=== PATIENT | male | born 1950 | race African-American/Black ===

== ENCOUNTER 2018-04-27 11:07 | Day surgery (SDC) | payer OTHER ==
[2018-04-26 10:12] LABS: Absolute Lymphocytes (CBC) 0.8 K/uL (0.7-4.9); Absolute Monocytes 0.3 K/uL (0.1-1.3); Absolute Neutrophil 2.3 K/uL (1.8-8.0); Basophils % 0.6 % (0-1.3); Eosinophils % 1.4 % (0-4.4); Hematocrit 40.6 % (39.6-49.0); Lymphocytes % 22.3 % (15.3-44.8); MCH 33.5 pg (27.0-35.0); MCV 97.9 fL (80-100); MPV 9.3 fL (7.6-11.3); Monocytes % 8.4 % (3.3-12.3); RBC Red Blood Cell Count 4.15 M/uL (4.33-5.43)
[2018-04-26 10:16] LABS: Urine Appearance CLEAR; Urine Bilirubin NEGATIVE (NEG); Urine Blood NEGATIVE (NEG); Urine Color YELLOW; Urine Glucose NEGATIVE (NEG); Urine Protein NEGATIVE (NEG); Urine Specific Gravity <=1.005 (1.005-1.030); Urine Urobilinogen 0.2 mg/dL (0.2-1.0); Urine pH 5.5 (5.0-7.0)
[2018-04-26 10:28] LABS: Protime INR 1.74
[2018-04-26 10:29] LABS: Potassium 4.2 mmol/L (3.5-5.1); Urine Microscopic Reflex NO UMIC
--- NOTE | 2018-04-26 10:35 | RAD REPORT ---
EXAM DESCRIPTION: RAD - Chest Pa And Lat (2 Views) - 04/26/2018 10:26 am CLINICAL HISTORY: preop Chest pain. COMPARISON: No comparisons FINDINGS: The lungs are clear. The heart is normal in size. No displaced fractures. Multi lead pacer /defibrillator device is present. IMPRESSION: No acute or concerning finding suspected.
--- NOTE | 2018-04-26 11:34 | EKG ---
Test Date: 2018-04-26 Test Time: 09:36:43 Property Maintenance Technician: JEN MEASUREMENT RESULTS: Intervals: Rate: 70 GA: QRSD: 144 QT: 388 QTc: 419 Yale: P: GA: QRS: 245 T: 58 INTERPRETIVE STATEMENTS: Electronic ventricular pacemaker No previous ECG available for comparison Electronically Signed On 04-26-18 11:34:10 [employer] by Ramesh Ortega
--- OUTSIDE RECORDS SUMMARY | 2018-04-27 11:19 | XMS REPORT ---
:1950 [facility] Address [address] [place] [address] [address] [place] [address] Care Team Providers Name Role Phone REYNALDO OLMEDO Primary Care Provider Unavailable REYNALDO OLMEDO Unavailable Unavailable Problems This patient has no known problems. Allergies, Adverse Reactions, Alerts This patient has no known allergies or adverse reactions. Medications This patient has no known medications. Encounters Start End Encounter Admission Attending Care Care Encounter Date/Time Date/Time Type Type Clinicians Facility Department ID 2017-05-26 2017-05-26 [facility] [id number] 20:59:00 20:59:00 REYNALDO Results Test Description Test Time Test Comments Text Results Atomic Results Result Comments Basic Metabolic Panel 2017-05-26 23:32:00 Test Item Value Reference Range Comments Sodium (test code=NA) 137 mmol/L 135-145 Potassium (test code=K) 4.6 mmol/L 3.5-5.1 Chloride (test code=CL) 98 mmol/L 98-105 Carbon Dioxide (test 28 mmol/L 22-29 code=CO2) Glucose (test code=GLU) 111 mg/dL 70-115 Blood Urea Nitrogen (test 17 mg/dL 8-23 code=BUN) Creatinine (test code=CREAT) 1.0 mg/dL 0.7-1.2 Calcium (test code=CA) 9.6 mg/dL 8.3-10.5 BUN/Creatinine Ratio (test 17.0 code=BCRATIO) Anion Gap (test code=AGAP) 11 mmol/L 7-16 Estimated GFR (test >60 mL/min/1.73m2 eGFR (estimated Glomerular code=GFR) Filtration Rate) is an estimated value,calculated from the patient's serum creatinine using the MDRD equation.It is NOT the patient's actual GFR. The eGFR provides a more clinicallyuseful measure of kidney disease than serum creatinine alone.This calculation takes sex and race into account, if the informationis provided. If the race is not provided, and the patient isAfrican-Algerian, multiply by 1.212. If sex is not provided, and thepatient is female, multiply by 0.742. Results for patients <18 years ofage have not been validated by the MDRD study and should be interpretedwith caution.eGFR Result Interpretation:eGFR > or=60 is in the Normal RangeeGFR < 60 may mean kidney diseaseeGFR < 15 may mean kidney failureRanges recommended by the National Kidney Foundation,http://nkdep.nih.go v [id number] 23:12:00 Test Item Value Reference Range Comments NT ProBnp (test code=PBNP) 548 pg/mL 0-124 Special Procedure Send [id number] 14:20:00 Test Item Value Reference Range Comments Performing Site (test code=SITE) see [facility] report Test Ordered (test code=TESTORD) B-Type Natriuretic Peptide
[2018-04-27] MEDS ORDERED: Ringers Lactate 1,000 ML IV ONE (11:36)
[2018-04-27] MEDS ORDERED: GENTAMICIN 100 MG/100 ML BAG 100 MG/100 ML BAG IV ONE (11:37)
[2018-04-27] MEDS ORDERED: PROPOFOL 200 MG/20 ML VIAL IV ONE (13:26)
[2018-04-27] MEDS ORDERED: FENTANYL CITR 100 MCG/2 ML ONE (13:27)
[2018-04-27] MEDS ORDERED: LIDOCAINE 1% MPF 5 ML VIAL ONE (13:27)
[2018-04-27] MEDS ORDERED: MIDAZOLAM HCL 2 MG/2 ML INJ ONE (13:27)
[2018-04-27] MEDS ORDERED: ONDANSETRON 4 MG/2 ML VIAL ONE (13:28)
[2018-04-27] MEDS ORDERED: Phenylephrine HCl 10 MG/ML 1 ML VIAL ONE (13:56)
[2018-04-27] MEDS ORDERED: NS 0.9% VIAL 10 ML ONE (13:56)
== END 2018-04-27 16:12 | disposition home or self-care (01) ==
LOC: OR 11:07
PROVIDERS: ATTEND Urology
PROC: 0TJB8ZZ Inspection of Bladder, Via Natural or Artificial Opening Endoscopic (ICD-10-PCS; 2018-04-27)
PROC: 0VT08ZZ Resection of Prostate, Via Natural or Artificial Opening Endoscopic (ICD-10-PCS; principal; 2018-04-27 13:15)
DX: C61 Malignant neoplasm of prostate (principal); R39.12 Poor urinary stream; R35.0 Frequency of micturition; N39.0 Urinary tract infection, site not specified; Z95.0 Presence of cardiac pacemaker; Z87.891 Personal history of nicotine dependence; Z86.718 Personal history of other venous thrombosis and embolism; Z79.01 Long term (current) use of anticoagulants; I11.0 Hypertensive heart disease with heart failure; I50.22 Chronic systolic (congestive) heart failure
CPT/HCPCS: 36415; 52601; 71046; 80048; 81003; 85025; 85610; 85730; 87086; 87088; 88305; 93005; G0103; J1580; J2250; J2370; J2405; J2704; J3010

== ENCOUNTER 2019-06-01 07:55 | Emergency (ER) | payer OTHER ==
--- OUTSIDE RECORDS SUMMARY | 2019-06-01 07:57 | XMS REPORT ---
:1950 Author [facility] Address [address] [place] [address] [address] [place] [address] Care Team Providers Name Role Phone REYNALDO OLEMDO Primary Care Provider Unavailable REYNALDO OLMEDO Unavailable Unavailable Problems This patient has no known problems. Allergies, Adverse Reactions, Alerts This patient has no known allergies or adverse reactions. Medications This patient has no known medications. Encounters Start End Encounter Admission Attending Care Care Encounter Date/Time Date/Time Type Type Clinicians Facility Department ID 2017-05-26 2017-05-26 Outpatient C [facility] [id number] 20:59:00 20:59:00 REYNALDO Results Test Description Test Time Test Comments Text Results Atomic Results Result Comments XR Chest 1 View Frontal 2018-06-25 08:52:36 Patient: GIGI BANKS Date/Time06/25/2018 08:48 CSTReason for Exampre icd change out;Other (please specify)ReportEXAM: XR CHEST 1 VIEW FRONTALHISTORY: Presurgery. ICD revisionLocation code R 16COMPARISON: Chest radiograph from 09/01/2013FINDINGS: The AICD/pacemaker device again seen in the left lateral chest. A single lead terminates in the right ventricle. Another the tip superimposes the lower lateral chest. Mild cardiomegaly redemonstrated.Lungs are otherwise clear. No pleural effusion or pneumothorax. Osseous structures unremarkable.IMPRESSION:1. Left-sided AICD/pacemaker. A single lead terminates in the right ventricle. Another the tip superimposes the lower lateral chest.2. Mild cardiomegaly redemonstrated. Final Dictated by: MD Subramanian Eniola FDictated DT/TM: 06/25/2018 8:49 amSigned by: MD Subramanian Eniola FSigned (Electronic Signature): 06/25/2018 8:52 am Basic Metabolic Panel 2017-05-26 23:32:00 Test Item [...] race is not provided, and the patient isAfrican-Malian, multiply by 1.212. If sex is not provided, and thepatient is female, multiply by 0.742. Results for patients <18 years ofage have not been validated by the MDRD study and should be interpretedwith caution.eGFR Result Interpretation:eGFR > or=60 is in the Normal RangeeGFR < 60 may mean kidney diseaseeGFR < 15 may mean kidney failureRanges recommended by the National Kidney Foundation,http://nkdep.nih.go v [id number] 23:12:00 Test Item Value Reference Range Comments NT ProBnp (test code=PBNP) 548 pg/mL 0-124 Special Procedure Send [id number] 14:20:00 Test Item Value Reference Range Comments Performing Site (test code=SITE) see [facility] report Test Ordered (test code=TESTORD) B-Type Natriuretic Peptide
--- NOTE | 2019-06-01 09:06 | EDPHYS ---
Physician Documentation [facility] Name: Jt Maurice Age: 68 yrs Sex: Male : 1950 Arrival Date: 06/01/2019 Time: 07:57 Bed 20 Private MD: ED Physician Yimi Villela HPI: 06/01 08:26 This 68 yrs old Black Male presents to ER via Ambulatory with complaints of Urinary niru Retention. 08:26 The patient presents with urinary symptoms, dribbling of urine, dysuria, urinary niru frequency, hesitancy to initiate urine stream, retention. Onset: The symptoms/episode began/occurred last night. Modifying factors: The symptoms are alleviated by nothing, the symptoms are aggravated by nothing. Associated signs and symptoms: Pertinent positives: dysuria. Severity of symptoms: At their worst the symptoms were mild, in the emergency department the symptoms have improved, moderately. The patient has experienced similar episodes in the past, a few times. Historical: - Allergies: 08:11 Iodine; dm5 08:11 PENICILLINS; dm5 - PMHx: 08:11 Atrial Fib; Hypertension; Prostate Cancer; dm5 - PSHx: 08:11 pacemaker; prostate cancer removal; dm5 - Immunization history:: Adult Immunizations up to date. - Social history:: Smoking status: Patient/guardian denies using tobacco. - Ebola Screening: : No symptoms or risks identified at this time. - Family history:: not pertinent. ROS: 08:26 Constitutional: Negative for fever, chills, and weight loss, Eyes: Negative for injury, niru pain, redness, and discharge, ENT: Negative for injury, pain, and discharge, Neck: Negative for injury, pain, and swelling, Cardiovascular: Negative for chest pain, palpitations, and edema, Respiratory: Negative for shortness of breath, cough, wheezing, and pleuritic chest pain, Abdomen/GI: Negative for abdominal pain, nausea, vomiting, diarrhea, and constipation, Back: Negative for injury and pain, MS/Extremity: Negative for injury and deformity, Skin: Negative for injury, rash, and discoloration, Neuro: Negative for headache, weakness, numbness, tingling, and seizure, Psych: Negative for depression, anxiety, suicide ideation, homicidal ideation, and hallucinations, Allergy/Immunology: Negative for hives, rash, and allergies, Endocrine: Negative for neck swelling, polydipsia, polyuria, polyphagia, and marked weight changes, Hematologic/Lymphatic: Negative for swollen nodes, abnormal bleeding, and unusual bruising. 08:26 : Positive for urinary symptoms, urinary frequency, difficulty urinating. Exam: 08:26 Constitutional: This is a well developed, well nourished patient who is awake, alert, niru and in no acute distress. Head/Face: Normocephalic, atraumatic. Eyes: Pupils equal round and reactive to light, extra-ocular motions intact. Lids and lashes normal. Conjunctiva and sclera are non-icteric and not injected. Cornea within normal limits. Periorbital areas with no swelling, redness, or edema. ENT: Nares patent. No nasal discharge, no septal abnormalities noted. Tympanic membranes are normal and external auditory canals are clear. Oropharynx with no redness, swelling, or masses, exudates, or evidence of obstruction, uvula midline. Mucous membranes moist. Neck: Trachea midline, no thyromegaly or masses palpated, and no cervical lymphadenopathy. Supple, full range of motion without nuchal rigidity, or vertebral point tenderness. No Meningismus. Chest/axilla: Normal chest wall appearance and motion. Nontender with no deformity. No lesions are appreciated. Cardiovascular: Regular rate and rhythm with a normal S1 and S2. No gallops, murmurs, or rubs. Normal PMI, no JVD. No pulse deficits. Respiratory: Lungs have equal breath sounds bilaterally, clear to auscultation and percussion. No rales, rhonchi or wheezes noted. No increased work of breathing, no retractions or nasal flaring. Abdomen/GI: Soft, non-tender, with normal bowel sounds. No distension or tympany. No guarding or rebound. No evidence of tenderness throughout. Back: No spinal tenderness. No costovertebral tenderness. Full range of motion. Male : Normal genitalia with no discharge or lesions. Skin: Warm, dry with normal turgor. Normal color with no rashes, no lesions, and no evidence of cellulitis. MS/ Extremity: Pulses equal, no cyanosis. Neurovascular intact. Full, normal range of motion. Neuro: Awake and alert, GCS 15, oriented to person, place, time, and situation. Cranial nerves II-XII grossly intact. Motor strength 5/5 in all extremities. Sensory grossly intact. Cerebellar exam normal. Normal gait. Psych: Awake, alert, with orientation to person, place and time. Behavior, mood, and affect are within normal limits. Vital Signs: 08:11 BP 154 / 79; Pulse 70; Resp 18; Temp 97.5(O); Pulse Ox 99% on R/A; Weight 83.91 kg (R); dm5 Height 6 ft. 0 in. (182.88 cm); Pain 0/10; 08:11 Body Mass Index 25.09 (83.91 kg, 182.88 cm) dm5 MDM: 08:01 Patient medically screened. [facility] 08:30 Data reviewed: vital signs, nurses notes, lab test result(s), urinalysis. [facility] 06/01 08:04 Order name: Urine Culture [facility] 06/01 08:50 Order name: Urine Dipstick--Ancillary (enter results) 06/01 08:03 Order name: Bladder Scanner; Complete Time: 08:16 [facility] 06/01 08:04 Order name: Urine Dipstick-Ancillary (obtain specimen); Complete Time: 08:47 [facility] Administered Medications: 09:27 Drug: Flomax 0.4 mg Route: PO; 09:27 Follow up: Response: Medication administered at discharge. sv 09:27 Drug: Cipro 500 mg Route: PO; sv 09:27 Follow up: Response: Medication administered at discharge. sv Disposition: 06/01/19 09:05 Discharged to Home. Impression: Retention of urine, Urinary tract infection, site not specified. - Condition is Stable. - Discharge Instructions: Urinary Tract Infection, Adult, Urinary Tract Infection, Adult, [id number], Acute Urinary Retention, Male, [id number]. - Prescriptions for Cipro 250 mg Oral Tablet - take 1 tablet by ORAL route every 12 hours; 20 tablet. Flomax 0.4 mg Oral Capsule, Sust. Release 24 hr - take 1 capsule by ORAL route once daily 1/2 hour following the same meal each day; 30 capsule. Bactrim DS 800- 160 mg Oral Tablet - take 1 tablet by ORAL route every 12 hours for 3 days; 6 tablet. - Medication Reconciliation Form, Thank You Letter, Antibiotic Education, Prescription Opioid Use form. - Follow up: Private Physician; When: 1 week; Reason: Recheck today's complaints, Continuance of care, Re-evaluation by your physician. - Problem is new. - Symptoms have improved. Signatures: Dispatcher [employer] Sharmaine Thompson, RN RN dm5 Meghann Perez RN RN sv Anderson, Corey, MD MD cha Corrections: (The following items were deleted from the chart) 09:28 09:05 06/01/2019 09:05 Discharged to Home. Impression: Retention of urine; Urinary sv tract infection, site not specified. Condition is Stable. Discharge Instructions: Acute Urinary Retention, Male, [id number]. Prescriptions for Cipro 250 mg Oral Tablet - take 1 tablet by ORAL route every 12 hours; 20 tablet, Flomax 0.4 mg Oral Capsule, Sust. Release 24 hr - take 1 capsule by ORAL route once daily 1/2 hour following the same meal each day; 30 capsule. and Forms are Medication Reconciliation Form, Thank You Letter, Antibiotic Education, Prescription Opioid Use. Follow up: Private Physician; When: 1 week; Reason: Recheck today's complaints, Continuance of care, Re-evaluation by your physician. Problem is new. Symptoms have improved. niru
--- NOTE | 2019-06-01 09:06 | ER ---
Nurse's Notes [facility] Name: Jt Maurice Age: 68 yrs Sex: Male : 1950 Arrival Date: 06/01/2019 Time: 07:57 Bed 20 Private MD: Diagnosis: Retention of urine;Urinary tract infection, site not specified Presentation: 06/01 08:08 Presenting complaint: Patient states: trouble urinating since last night. surgery to dm5 remove scar tissue following previous prostate cancer surgery. pt reports dribbling when trying to urinate. Transition of care: patient was not received from another setting of care. Onset of symptoms was June 01, 2019. 08:08 Acuity: GAGANDEEP 3 dm5 08:08 Method Of Arrival: Ambulatory [facility] 08:24 Risk Assessment: Do you want to hurt yourself or someone else? Patient reports no sv desire to harm self or others. Initial Sepsis Screen: Does the patient meet any 2 criteria? No. Patient's initial sepsis screen is negative. Does the patient have a suspected source of infection? No. Patient's initial sepsis screen is negative. Care prior to arrival: None. Historical: - Allergies: 08:11 Iodine; dm5 08:11 PENICILLINS; dm5 - PMHx: 08:11 Atrial Fib; Hypertension; Prostate Cancer; dm5 - PSHx: 08:11 pacemaker; prostate cancer removal; dm5 - Immunization history:: Adult Immunizations up to date. - Social history:: Smoking status: Patient/guardian denies using tobacco. - Ebola Screening: : No symptoms or risks identified at this time. - Family history:: not pertinent. Screenin:24 Abuse screen: Denies threats or abuse. Denies injuries from another. Nutritional sv screening: No deficits noted. Tuberculosis screening: No symptoms or risk factors identified. Fall Risk None identified. Assessment: 08:22 General: Appears in no apparent distress. comfortable, well developed, Behavior is sv calm, cooperative, appropriate for age. Pain: Denies pain. Neuro: Level of Consciousness is awake, alert, obeys commands, Oriented to person, place, time, situation, Moves all extremities. Full function Gait is steady. Respiratory: Airway is patent Respiratory effort is even, unlabored, Respiratory pattern is regular, symmetrical. : Reports dribbling with urination. Derm: Skin is pink, warm \T\ dry. 09:28 Reassessment: Patient appears in no apparent distress at this time. No changes from previously documented assessment. Patient and/or family updated on plan of care and expected duration. Pain level reassessed. Patient is alert, oriented x 3, equal unlabored respirations, skin warm/dry/pink. Vital Signs: 08:11 BP 154 / 79; Pulse 70; Resp 18; Temp 97.5(O); Pulse Ox 99% on R/A; Weight 83.91 kg (R); dm5 Height 6 ft. 0 in. (182.88 cm); Pain 0/10; 08:11 Body Mass Index 25.09 (83.91 kg, 182.88 cm) 5 ED Course: 07:57 Patient arrived in ED. as 08:01 Yimi Villela MD is Attending Physician. [facility] 08:10 Triage completed. dm5 08:11 Arm band placed on. dm5 08:16 Meghann Perez RN is Primary Nurse. sv 08:22 ED physician to see patient. sv 08:22 Bladder scan completed. 24 mL. dm5 08:24 Patient has correct armband on for positive identification. Bed in low position. Call sv light in reach. Adult w/ patient. Pulse ox on. NIBP on. Door closed. Head of bed elevated. 09:28 No provider procedures requiring assistance completed. Patient admitted, IV remains in sv place. intact. Administered Medications: 09:27 Drug: Flomax 0.4 mg Route: PO; sv 09:27 Follow up: Response: Medication administered at discharge. sv 09:27 Drug: Cipro 500 mg Route: PO; sv :27 Follow up: Response: Medication administered at discharge. sv Outcome: 09:05 Discharge ordered by . [facility] 09:28 Discharged to home ambulatory, with family. sv 09:28 Condition: stable 09:28 Discharge instructions given to patient, Instructed on discharge instructions, follow up and referral plans. medication usage, Demonstrated understanding of instructions, follow-up care, medications, Prescriptions given X 3. 09:28 Patient left the ED. Signatures: Sharmaine Edmondson, RN RN [facility] Meghann Perez, MATTHEW CASTRO Yimi Villela MD MD cha Martinez, Amelia as
[2019-06-01] MEDS ORDERED: TAMSULOSIN 0.4 MG SR CAP ONE (09:14)
[2019-06-01] MEDS ORDERED: CIPROFLOXACIN HCL 500 MG TAB ONE (09:14)
[2019-06-01 09:45] VITALS: BP 154/79; TEMP 97.5; O2SAT 99
[2019-06-01 10:13] LABS: Urine Blood 3+ (NEG); Urine Glucose NEGATIVE (NEG); Urine Protein 2+ (NEG); Urine pH 5.5 (5.0-7.0)
== END 2019-06-01 09:28 | disposition home or self-care (01) ==
LOC: ER 07:55
DX: N39.0 Urinary tract infection, site not specified (principal); R33.9 Retention of urine, unspecified; Z88.0 Allergy status to penicillin; Z91.09 Other allergy status, other than to drugs and biological substances; Z85.46 Personal history of malignant neoplasm of prostate
CPT/HCPCS: 81003; 87086; 87088; 99283

== ENCOUNTER 2019-08-02 | Emergency (ER) | payer SELFPAY ==
--- OUTSIDE RECORDS SUMMARY | 2019-08-02 12:33 | XMS REPORT ---
:1950 [facility] Address [address] [place] [address] [address]. [address]. [address] [place] [address] Care Team Providers Name Role Phone REYNALDO [...] Department ID 2017-05-26 2017-05-26 Outpatient C [facility] [id number] 20:59:00 20:59:00 REYNALDO Results Test Description Test [...] race is not provided, and the patient isAfrican-Gibraltarian, multiply by 1.212. If sex is not provided, and thepatient is female, multiply by 0.742. Results for patients <18 years ofage have not been validated by the MDRD study and should be interpretedwith caution.eGFR Result Interpretation:eGFR > or=60 is in the Normal RangeeGFR < 60 may mean kidney diseaseeGFR < 15 may mean kidney failureRanges recommended by the National Kidney Foundation,http://nkdep.nih.go v [id number] 23:12:00 Test Item Value Reference Range Comments NT ProBnp (test code=PBNP) 548 pg/mL 0-124 Special Procedure Send [id number] 14:20:00 Test Item Value Reference Range Comments Performing Site (test code=SITE) see [facility] report Test Ordered (test code=TESTORD) B-Type Natriuretic Peptide
--- NOTE | 2019-08-02 13:27 | ER ---
Nurse's Notes [facility] Name: Jt Maurice Age: 68 yrs Sex: Male : 1950 Arrival Date: 08/02/2019 Time: 12:33 Bed Waiting Private MD: Diagnosis: Presentation: 08/01 12:38 Chief complaint: Patient states: This morning is having trouble urinating, and couldn't ca1 urinate till now. Attempted to use restroom before coming to triage was unsuccessful. Reports blood in the urine. Reports history of Prostate cancer. Coronavirus screen: The patient has NOT traveled to a country currently being monitored by the [facility] within the last 14 days. The patient has NOT had contact with any known and/or suspected case of coronavirus. Ebola Screen: Patient negative for fever greater than or equal to 101.5 degrees Fahrenheit, and additional compatible Ebola Virus Disease symptoms Patient denies exposure to infectious person. Patient denies travel to an Ebola-affected area in the 21 days before illness onset. No symptoms or risks identified at this time. Initial Sepsis Screen: Does the patient meet any 2 criteria? No. Patient's initial sepsis screen is negative. Does the patient have a suspected source of infection? No. Patient's initial sepsis screen is negative. Risk Assessment: Do you want to hurt yourself or someone else? Patient reports no desire to harm self or others. Onset of symptoms was August 02, 2019. 12:38 Method Of Arrival: Ambulatory ca1 12:38 Acuity: GAGANDEEP 3 ca1 Historical: - Allergies: 12:41 Iodine; ca1 12:41 PENICILLINS; ca1 - PMHx: 12:41 Atrial Fib; Hypertension; Prostate Cancer; ca1 - PSHx: 12:41 pacemaker; prostate cancer removal; ca1 Assessment: 13:25 Reassessment: Registration said, "he left about 10 minutes ago. he said he will go to [facility] and doesn't want to wait". Vital Signs: 12:38 BP 163 / 76; Pulse 70; Resp 17 S; Temp 98.6(TE); Pulse Ox 98% on R/A; Weight 83.91 kg ca1 (R); Height 6 ft. 0 in. (182.88 cm) (R); Pain 9/10; 12:38 Body Mass Index 25.09 (83.91 kg, 182.88 cm) ca1 ED Course: 12:33 Patient arrived in ED. rg4 12:41 Triage completed. ca1 12:41 Arm band placed on right wrist. ca1 Administered Medications: No medications were administered Outcome: 13:26 Patient left the ED. ca1 Signatures: Lea Camacho rg4 Lolly Jordan, RN RN ca1
== END 2019-08-02 13:26 | disposition left against medical advice (07) ==
CPT/HCPCS: 99281

== ENCOUNTER 2024-05-05 04:43 | Emergency (ER) | payer OTHER ==
[2024-05-05] MEDS ORDERED: ONDANSETRON 4 MG/2 ML VIAL ONE (05:42)
[2024-05-05] MEDS ORDERED: NA CHLORIDE 0.9% 1,000 ML ONE (05:43)
[2024-05-05] MEDS ORDERED: DIPHENOX/ATROP SULF 1 TAB PO ONE (05:43)
[2024-05-05 06:27] LABS: Absolute Lymphocytes (CBC) 0.5 K/uL (0.7-4.9); Absolute Monocytes 0.6 K/uL (0.1-1.3); Absolute Neutrophil 6.7 K/uL (1.8-8.0); Basophils % 0.2 % (0-1.3); Eosinophils % 0.3 % (0-4.4); Hematocrit 43.6 % (39.6-49.0); Hemoglobin 14.2 g/dL (13.6-17.9); Lymphocytes % 6.9 % (15.3-44.8); MCH 32.5 pg (27.0-35.0); MCHC 32.5 g/dL (32.0-36.0); MPV 9.5 fL (7.6-11.3); Monocytes % 7.7 % (3.3-12.3); Neutrophils % 84.9 % (41.7-73.7); Platelets 174 thou/uL (152-406); RBC Red Blood Cell Count 4.36 M/uL (4.33-5.43)
[2024-05-05 06:34] LABS: Albumin 3.9 g/dL (3.4-5.0); Albumin/Globulin Ratio 0.9 (1.1-1.8); Anion Gap 8.2 mEq/L (5.0-15.0); Bilirubin Total 1.4 mg/dL (0.2-1.0); Globulin 4.3 g/dL (2.3-3.5); Potassium 4.2 mEq/L (3.5-5.1); Protein, Total 8.2 g/dL (6.4-8.2)
--- NOTE | 2024-05-05 07:09 | EDPHYS ---
Physician Documentation [facility] Name: Jt Maurice Age: 73 yrs Sex: Male : 1950 Arrival Date: 05/05/2024 Time: 04:43 Bed 3 Private MD: ED Physician Ortega Turcios HPI: 05/05 05:08 This 73 yrs old Black Male presents to ER via Ambulatory with complaints of Weakness, sp4 Diarrhea, Abdominal Pain. 07:08 patient arrives today d/t concern for nausea, diarrhea and abd discomfort. Patient ec2 reports that since last night has been having some loose stools. Denies any significant abdominal pain but reports of cramping. Reports no urinary complaints. No cough or cold symptoms. No fevers. Historical: - Allergies: 05:07 Iodine; kd3 05:07 PENICILLINS; kd3 - PMHx: 05:07 Atrial Fib; Hypertension; Prostate Cancer; kd3 - Immunization history:: Adult Immunizations up to date. - Infectious Disease History:: Denies. - Social history:: Smoking status: Patient/guardian denies using tobacco, but has a distant history of tobacco abuse. ROS: 07:08 Constitutional: as per hpi ec2 Exam: 07:08 Constitutional: GEN: NAD Head: atraumatic Eyes: EOMI Ears: External ears are ec2 normal. CV: regular rate LUNGS: no respiratory distress ABD: non-distended, soft, nontender, abdomen is soft and not guarding not rigid SKIN: no evidence of rashes MSK: no evidence of trauma Vital Signs: 05:01 BP 134 / 67; Pulse 81; Resp 16; Temp 98.2(O); Pulse Ox 97% on R/A; Weight 87.09 kg; kd3 Height 6 ft. 0 in. ; Pain 8/10; 07:19 BP 129 / 78; Pulse 69; Resp 17; Pulse Ox 97% on R/A; Pain 0/10; ll1 05:01 Body Mass Index 26.04 (87.09 kg, 182.88 cm) kd3 05:01 Pain Scale: Adult kd3 07:19 Pain Scale: Adult ll1 [place] Coma Score: 06:15 Eye Response: spontaneous(4). Motor Response: obeys commands(6). Verbal Response: ay oriented(5). Total: 15. MDM: 05:13 Medical Screening Exam initiated sp4 07:08 Data reviewed: vital signs, nurses notes. ED course: Patient arrives today for ec2 evaluation of diarrhea. Examination is revealing for well-appearing nontoxic individuals otherwise in no acute distress with a reassuring examination. Lab work is reassuring. Will discharge home. Differential diagnosis considered include processes such as diverticulitis, appendicitis, gastroenteritis. Patient without focal abdominal pain to indicate obtaining CT imaging at this time. Instructed on return precautions. Suspect gastroenteritis.. 05/05 05:13 Order name: CBC with Diff; Complete Time: 07:02 sp4 05/05 05:13 Order name: CMP; Complete Time: 07:02 sp4 05/05 05:13 Order name: Lipase; Complete Time: 07:02 sp4 05/05 05:14 Order name: Influenza Screen (a \T\ B); Complete Time: 07:02 sp4 05/05 05:13 Order name: IV Saline Lock; Complete Time: 06:15 sp4 05/05 05:13 Order name: Labs collected and sent; Complete Time: 06:15 sp4 Administered Medications: 06:14 Drug: NS 0.9% IV 1000 ml IV at 1 bolus Per protocol; to be given as a bolus over 60 ay minutes Route: IV; Rate: 1 bolus; Site: left antecubital; 07:20 Follow up: Response: No adverse reaction; IV Status: Completed infusion; IV Intake: ll1 1000ml 06:15 Drug: Diphenoxylate-Atropine PO 2 tabs PO once Route: PO; ay 07:21 Follow up: Response: No adverse reaction ll1 06:15 Drug: Ondansetron IVP 4 mg IVP once; over 2 minutes Route: IVP; Site: left antecubital; ay 07:21 Follow up: Response: No adverse reaction ll1 Disposition Summary: 05/05/24 07:08 Discharge Ordered Notes: Location: Home ec2 Condition: Stable ec2 Diagnosis - Diarrhea, unspecified ec2 Followup: ec2 - With: Private Physician - When: - Reason: Re-evaluation by your physician Discharge Instructions: - Discharge Summary Sheet ec2 - Diarrhea, Adult ec2 Forms: - Medication Reconciliation Form ec2 - Antibiotic Education ec2 - Prescription Opioid Use ec2 - Patient Portal Instructions ec2 - Leadership Thank You Letter ec2 Prescriptions: - Zofran 4 mg Oral Tablet - take 1 tablet ORAL route every 12 hours As needed; 20 tablet; Refills: 0, ec2 Product Selection Permitted - dicyclomine 10 mg Oral capsule - take 1 capsule ORAL route 3 times per day; 20 capsule; Refills: 0, Product ec2 Selection Permitted Signatures: Dispatcher [employer] Carolyn Hall RN RN kd3 Anderson Soto MD MD sp4 Ortega Turcios MD MD ec2 Mikey Zaidi RN RN ay Lewis, Lynsay RN ll1 Corrections: (The following items were deleted from the chart) 05:14 05:14 CBC+H.LAB.BRZ ordered. EDMS EDMS 05:14 05:14 COMPREHENSIVE METABOLIC PANEL+C.LAB.BRZ ordered. EDMS EDMS 05:14 05:14 LIPASE+C.LAB.BRZ ordered. EDMS EDMS 05:14 05:14 Urinalysis+U.LAB.BRZ ordered. EDMS EDMS 07:18 07:08 Constitutional: GEN: NAD Head: atraumatic Eyes: EOMI Ears: External ears are ec2 normal. CV: regular rate LUNGS: no respiratory distress ABD: non-distended, soft, nontender, not guarding, not rigid SKIN: no evidence of rashes MSK: no evidence of trauma ec2 07:19 07:08 Constitutional: GEN: NAD Head: atraumatic Eyes: EOMI Ears: External ears are ec2 normal. CV: regular rate LUNGS: no respiratory distress ABD: non-distended, soft, minimally tender in the right flank, abdomen is soft and not guarding not rigid SKIN: no evidence of rashes MSK: no evidence of trauma ec2
--- NOTE | 2024-05-05 07:09 | ER ---
Nurse's Notes [facility] Name: Jt Maurice Age: 73 yrs Sex: Male : 1950 Arrival Date: 05/05/2024 Time: 04:43 Bed 3 Private MD: Diagnosis: Diarrhea, unspecified Presentation: 05/05 05:05 Chief complaint: Patient states: I have had watery bowls starting yesterday around 5 kd3 PM. I am not sure what has caused it. I have felt nauseous but i have not vomited. I have some leg cramps. Coronavirus screen: Vaccine status: Patient reports receiving the 2nd dose of the covid vaccine. Ebola Screen: No symptoms or risks identified at this time. Initial Sepsis Screen: Does the patient meet any 2 criteria? No. Patient's initial sepsis screen is negative. Does the patient have a suspected source of infection? No. Patient's initial sepsis screen is negative. Risk Assessment: Do you want to hurt yourself or someone else? Patient reports no desire to harm self or others. Onset of symptoms was May 04, 2024. 05:05 Method Of Arrival: Ambulatory kd3 05:05 Acuity: GAGANDEEP 3 kd3 Triage Assessment: 05:07 General: Appears in no apparent distress. Behavior is calm, cooperative. Pain: kd3 Complains of pain in abdomen. Historical: - Allergies: 05:07 Iodine; kd3 05:07 PENICILLINS; kd3 - PMHx: 05:07 Atrial Fib; Hypertension; Prostate Cancer; kd3 - Immunization history:: Adult Immunizations up to date. - Infectious Disease History:: Denies. - Social history:: Smoking status: Patient/guardian denies using tobacco, but has a distant history of tobacco abuse. Screenin:15 [facility] ED Fall Risk Assessment (Adult) History of falling in the last 3 months, ay including since admission No falls in past 3 months (0 pts) Confusion or Disorientation No (0 pts) Intoxicated or Sedated No (0 pts) Impaired Gait No (0 pts) Mobility Assist Device Used No (0 pt) Altered Elimination No (0 pt) Score/Fall Risk Level 0 - 2 = Low Risk Oriented to surroundings, Maintained a safe environment, Educated pt \T\ family on fall prevention, incl call for assistance when getting out of bed. Abuse screen: Denies threats or abuse. Denies injuries from another. Nutritional screening: No deficits noted. Tuberculosis screening: No symptoms or risk factors identified. Assessment: 06:15 General: Appears in no apparent distress. uncomfortable, Behavior is calm, cooperative. ay Pain: Complains of pain in abdomen Pain currently is 8 out of 10 on a pain scale. Quality of pain is described as crampy. Neuro: Level of Consciousness is awake, alert, obeys commands, Oriented to person, place, time, situation, Speech is normal. Cardiovascular: Heart tones S1 S2 Capillary refill < 3 seconds. Respiratory: Airway is patent Respiratory effort is even, unlabored, Respiratory pattern is regular, symmetrical. GI: Abdomen is round Bowel sounds present X 4 quads. Abd is soft Abdomen is tender to palpation in suprapubic area, right lower quadrant and left lower quadrant. : No signs and/or symptoms were reported regarding the genitourinary system. EENT: No signs and/or symptoms were reported regarding the EENT system. Derm: Skin is intact. Musculoskeletal: Capillary refill < 3 seconds, Reports cramps in bilateral lower extremities. 07:00 Reassessment: report received from docket clerk RN. ll1 07:19 Reassessment: No changes from previously documented assessment. Patient and/or family ll1 updated on plan of care and expected duration. Pain level reassessed. Vital Signs: 05:01 BP 134 / 67; Pulse 81; Resp 16; Temp 98.2(O); Pulse Ox 97% on R/A; Weight 87.09 kg; kd3 Height 6 ft. 0 in. ; Pain 8/10; 07:19 BP 129 / 78; Pulse 69; Resp 17; Pulse Ox 97% on R/A; Pain 0/10; ll1 05:01 Body Mass Index 26.04 (87.09 kg, 182.88 cm) kd3 05:01 Pain Scale: Adult kd3 07:19 Pain Scale: Adult ll1 [place] Coma Score: 06:15 Eye Response: spontaneous(4). Motor Response: obeys commands(6). Verbal Response: ay oriented(5). Total: 15. ED Course: 04:48 Patient arrived in ED. gm2 05:07 Triage completed. kd3 05:07 Arm band placed on right wrist. kd3 05:08 Anderson Soto MD is Attending Physician. sp4 05:38 Mikey Zaidi, MATTHEW is Primary Nurse. ay 06:14 Influenza Screen (a \T\ B) Sent. ay 06:15 Patient has correct armband on for positive identification. Allergy band placed. Placed ay in gown. Bed in low position. Call light in reach. Side rails up X2. Adult w/ patient. Provided Education on: plan of care. 06:15 CBC with Diff Sent. ay 06:15 CMP Sent. ay 06:15 Lipase Sent. ay 06:15 No provider procedures requiring assistance completed. Initial lab(s) drawn, by me, Flu ay and/or RSV swab sent to lab. Inserted saline lock: 20 gauge in left antecubital area, using aseptic technique. 07:01 Attending Physician role handed off by Anderson Soto MD ec2 07:01 Ortega Turcios MD is Attending Physician. ec2 07:19 IV discontinued, intact, bleeding controlled, No redness/swelling at site. Pressure ll1 dressing applied. Administered Medications: 06:14 Drug: NS 0.9% IV 1000 ml IV at 1 bolus Per protocol; to be given as a bolus over 60 ay minutes Route: IV; Rate: 1 bolus; Site: left antecubital; 07:20 Follow up: Response: No adverse reaction; IV Status: Completed infusion; IV Intake: ll1 1000ml 06:15 Drug: Diphenoxylate-Atropine PO 2 tabs PO once Route: PO; ay 07:21 Follow up: Response: No adverse reaction ll1 06:15 Drug: Ondansetron IVP 4 mg IVP once; over 2 minutes Route: IVP; Site: left antecubital; ay 07:21 Follow up: Response: No adverse reaction ll1 Medication: 06:15 VIS not applicable for this client. ay Intake: 07:20 IV: 1000ml; Total: 1000ml. ll1 Outcome: 07:08 Discharge ordered by . ec2 07:20 Discharged to home ambulatory, ll1 07:20 Condition: stable 07:20 Discharge instructions given to patient, Instructed on discharge instructions, follow up and referral plans. medication usage, Demonstrated understanding of instructions, follow-up care, medications, Prescriptions given X 2, 07:21 Patient left the ED. ll1 Signatures: Teodora Glynn RN RN ll1 Carolyn Fountain, RN RN kd3 Anderson Soto MD MD sp4 Ortega Turcios MD MD ec2 Dayanara Thomas 2 Mikey Zaidi, RN RN ay
[2024-05-05 07:26] VITALS: TEMP 98.2; O2SAT 97
[2024-05-05 07:28] VITALS: BP 129/78
== END 2024-05-05 07:21 | disposition home or self-care (01) ==
LOC: ER 04:43
DX: R19.7 Diarrhea, unspecified (principal); R53.1 Weakness; R11.0 Nausea; I10 Essential (primary) hypertension; I48.11 Longstanding persistent atrial fibrillation; C61 Malignant neoplasm of prostate; Z88.0 Allergy status to penicillin; Z91.048 Other nonmedicinal substance allergy status
CPT/HCPCS: 96361; 85025; 36415; 83690; 80053; 87804 ×2; 96374; 99284; J2405; J7030

== ENCOUNTER 2024-05-22 04:22 | Emergency (ER) | payer OTHER ==
[2024-05-22] MEDS ORDERED: LIDOCAINE 1% MPF 5 ML VIAL ONE (05:24)
[2024-05-22] MEDS ORDERED: PROMETHAZINE 25 MG TABLET ONE (05:24)
[2024-05-22] MEDS ORDERED: IBUPROFEN 400 MG TAB ONE (05:24)
[2024-05-22] MEDS ORDERED: CEFTRIAXONE 1000 MG/VIAL ONE (05:24)
[2024-05-22] MEDS ORDERED: CODEINE 30MG/APAP 300MG TAB ONE (05:25)
--- NOTE | 2024-05-22 07:33 | RAD REPORT ---
EXAM:Soft Tissue Neck Wo Contr TECHNIQUE: Unenhanced CT axial images of the neck obtained COMPARISON: None CLINICAL HISTORY: Neck pain and sore throat. Cough FINDINGS: Left tonsil is more prominent than the right. No adjacent abscess seen. Parapharyngeal fat is clear. The remainder of the pharynx, larynx and subglottic trachea appear unremarkable Parotid, submandibular and thyroid glands appear unremarkable No significant lymphadenopathy seen. No fluid within the visualized sinuses/mastoids noted Calcification posterior longitudinal ligament results in marked central spinal stenosis IMPRESSION: Left tonsil is prominent. This could indicate a tonsillitis or mass. Nonemergent MRI neck with contra st may be helpful for further evaluation
--- NOTE | 2024-05-22 08:04 | ER ---
Nurse's Notes [facility] Name: Jt Maurice Age: 73 yrs Sex: Male : 1950 Arrival Date: 05/22/2024 Time: 04:22 Bed 5 Private MD: Diagnosis: Acute tonsillitis, unspecified Presentation: 05/22 04:25 Chief complaint: Chief complaint: Patient states: cough and sore throat. ha1 04:25 Method Of Arrival: Ambulatory ha1 04:25 Coronavirus screen: Client denies travel out of the [place] in the last 14 days. Ebola ha1 Screen: No symptoms or risks identified at this time. Initial Sepsis Screen: Does the patient meet any 2 criteria? No. Patient's initial sepsis screen is negative. Does the patient have a suspected source of infection? No. Patient's initial sepsis screen is negative. Risk Assessment: Do you want to hurt yourself or someone else? Patient reports no desire to harm self or others. Onset of symptoms was May 22, 2024. 04:25 Acuity: GAGANDEEP 4 ha1 Historical: - Allergies: 04:40 Iodine; ay 04:40 PENICILLINS; ay - Home Meds: 04:40 carvedilol 3.125 mg Oral tab 1 tab 2 times per day [Active]; digoxin 250 mcg Oral tab 1 ay tab once daily [Active]; Klor-Con 10 10 mEq Oral TbER 1 tab once daily [Active]; Lasix 20 mg Oral tab 1 tab once daily [Active]; lisinopril 2.5 mg Oral tab 1 tab once daily [Active]; warfarin 5 mg Oral tab 1 tab once daily [Active]; - PMHx: 04:40 Atrial Fib; Hypertension; Prostate Cancer; ay - Immunization history:: Adult Immunizations unknown. - Infectious Disease History:: Denies. - Family history:: not pertinent. - Social history:: Smoking status: Patient denies any tobacco usage or history of. Screenin:40 [facility] ED Fall Risk Assessment (Adult) History of falling in the last 3 months, ay including since admission No falls in past 3 months (0 pts) Confusion or Disorientation No (0 pts) Intoxicated or Sedated No (0 pts) Impaired Gait No (0 pts) Mobility Assist Device Used No (0 pt) Altered Elimination No (0 pt) Score/Fall Risk Level 0 - 2 = Low Risk Oriented to surroundings, Maintained a safe environment, Educated pt \T\ family on fall prevention, incl call for assistance when getting out of bed. Abuse screen: Denies threats or abuse. Denies injuries from another. Nutritional screening: No deficits noted. Tuberculosis screening: No symptoms or risk factors identified. Assessment: 04:40 General: Appears in no apparent distress. uncomfortable, Behavior is calm, cooperative. ay Pain: Complains of pain in Throat. Neuro: Level of Consciousness is awake, alert, obeys commands, Oriented to person, place, time, situation, Speech is normal. Cardiovascular: Denies chest pain, nausea, vomiting, Capillary refill < 3 seconds. Respiratory: Airway is patent Respiratory effort is even, unlabored, Respiratory pattern is regular, symmetrical, Breath sounds are clear bilaterally. Breath sounds are diminished. GI: Abdomen is flat. : No signs and/or symptoms were reported regarding the genitourinary system. EENT: Throat is clear is pink sore throat. Derm: No signs and/or symptoms reported regarding the dermatologic system. Musculoskeletal: No signs and/or symptoms reported regarding the musculoskeletal system. 06:25 Reassessment: Patient appears in no apparent distress at this time. Patient is alert, ay oriented x 3, equal unlabored respirations, skin warm/dry/pink. throat pain decreased. Vital Signs: 04:58 BP 170 / 87; Pulse 74; Resp 18 S; Temp 98.8; Pulse Ox 99% on R/A; Weight 95.25 kg; ha1 Height 6 ft. 0 in. ; 06:26 BP 146 / 79; Pulse 70; Resp 16 S; Pulse Ox 99% on R/A; ay 07:26 BP 134 / 78; Pulse 72; Resp 16; Pulse Ox 99% ; ko1 04:58 Body Mass Index 28.48 (95.25 kg, 182.88 cm) ha1 Andi Coma Score: 04:40 Eye Response: spontaneous(4). Motor Response: obeys commands(6). Verbal Response: ay oriented(5). Total: 15. 19:27 Eye Response: spontaneous(4). Motor Response: obeys commands(6). Verbal Response: sp4 oriented(5). Total: 15. ED Course: 04:25 Patient arrived in ED. gm2 04:40 Patient has correct armband on for positive identification. Bed in low position. Call ay light in reach. Side rails up X2. Adult w/ patient. Provided Education on: plan of care. 04:51 Anderson Soto MD is Attending Physician. sp4 04:58 Triage completed. ha1 05:04 Mikey Zaidi, RN is Primary Nurse. ay 05:12 Soft Tissue Neck Wo Contr In Process Unspecified. EDMS 06:53 Client placed on continuous cardiac and pulse oximetry monitoring. NIBP monitoring bm8 applied. Pulse ox on. NIBP on. Door closed. Noise minimized. Warm blanket given. Pillow given. Verbal reassurance given. Head of bed elevated. 06:53 No provider procedures requiring assistance completed. Patient maintains SpO2 bm8 saturation greater than 95% on room air. 08:02 Meghann Reyna MD is Referral Physician. sp4 08:20 Arm band placed on. bp 08:20 Patient did not have IV access during this emergency room visit. bp Administered Medications: 05:43 Drug: Promethazine PO 25 mg PO once Route: PO; ay 06:54 Follow up: Response: No adverse reaction bm8 05:44 Drug: Rocephin (cefTRIAXone) IM 1 grams IM once Route: IM; Site: right deltoid; ay 06:54 Follow up: Response: No adverse reaction bm8 05:44 Drug: Acetaminophen-Codeine PO (300 mg-30 mg) 2 tabs PO once; RASS on ADMIN: Combtv4, ay Very Agttd3, Agttd2, Rstlss1, AlertClm0, Drwsy-1, Lt Sdtn-2, Mod Sdtn-3, Dp Sdtn-4, UnArsble-5 Route: PO; 06:54 Follow up: Response: No adverse reaction bm8 05:44 Drug: Ibuprofen PO 800 mg PO once Route: PO; ay 06:54 Follow up: Response: No adverse reaction bm8 Medication: 04:40 VIS not applicable for this client. ay Outcome: 08:03 Discharge ordered by . sp4 08:20 Discharged to home ambulatory, with family, bp 08:20 Condition: stable 08:20 Discharge instructions given to patient, family, Instructed on discharge instructions, follow up and referral plans. medication usage, Demonstrated understanding of instructions, follow-up care, medications, Prescriptions given X 2, 08:20 Patient left the ED. bp Signatures: Dispatcher [employer] EDSalazar Villa RN Otilia Archuleta RN RN ha1 Whit Caballero RN RN ko1 Anderson Soto MD MD sp4 Dayanara Thomas gm2 Anton Baer RN RN bm8 Mikey Zaidi RN RN ay Corrections: (The following items were deleted from the chart) 04:58 04:25 Chief complaint: ha1 ha1
--- NOTE | 2024-05-22 08:04 | EDPHYS ---
Physician Documentation [facility] Name: Jt Maurice Age: 73 yrs Sex: Male : 1950 Arrival Date: 05/22/2024 Time: 04:22 Bed 5 Private MD: ED Physician Anderson Soto HPI: 05/22 04:51 This 73 yrs old Black Male presents to ER via Unassigned with complaints of Sore sp4 Throat, Difficulty Swallowing. 19:27 73-year-old male presents with acute soreness in the throat and difficulty swallowing , sp4 reports pain on swallowing.. Historical: - Allergies: 04:40 Iodine; ay 04:40 PENICILLINS; ay - Home Meds: 04:40 carvedilol 3.125 mg Oral tab 1 tab 2 times per day [Active]; digoxin 250 mcg Oral tab 1 ay tab once daily [Active]; Klor-Con 10 10 mEq Oral TbER 1 tab once daily [Active]; Lasix 20 mg Oral tab 1 tab once daily [Active]; lisinopril 2.5 mg Oral tab 1 tab once daily [Active]; warfarin 5 mg Oral tab 1 tab once daily [Active]; - PMHx: 04:40 Atrial Fib; Hypertension; Prostate Cancer; ay - Immunization history:: Adult Immunizations unknown. - Infectious Disease History:: Denies. - Family history:: not pertinent. - Social history:: Smoking status: Patient denies any tobacco usage or history of. ROS: 19:27 Constitutional: Negative for fever, chills, and weight loss, positive sore throat, sp4 positive pain on swallowing 19:27 All other systems are negative, Exam: 19:27 Constitutional: This is a well developed, well nourished patient who is awake, alert, sp4 and in no acute distress. Head/Face: Normocephalic, atraumatic. Eyes: Pupils equal round and reactive to light, extra-ocular motions intact. Lids and lashes normal. Conjunctiva and sclera are not injected. Cornea within normal limits. Periorbital areas with no swelling, redness, or edema. ENT: Nares patent. No nasal discharge, no septal abnormalities noted. Tympanic membranes are normal and external auditory canals are clear. Oropharynx -not well-visualized secondary patient not able to cooperate for throat exam Neck: Trachea midline, no thyromegaly or masses palpated, and no cervical lymphadenopathy. Supple, full range of motion without nuchal rigidity, or vertebral point tenderness. Chest/axilla: Normal chest wall appearance and motion. Nontender with no deformity. No lesions are appreciated. Cardiovascular: Regular rate and rhythm with a normal S1 and S2. No gallops, murmurs, or rubs. Normal PMI, no JVD. No pulse deficits. Respiratory: Lungs have equal breath sounds bilaterally, clear to auscultation and percussion. No rales, rhonchi or wheezes noted. No increased work of breathing, no retractions or nasal flaring. Abdomen/GI: Soft, with normal bowel sounds. No distension or tympany. No guarding or rebound. No evidence of tenderness throughout. Back: No spinal tenderness. No costovertebral tenderness. Skin: Warm, dry with normal turgor. Normal color with no rashes, no lesions, and no evidence of cellulitis. MS/ Extremity: Pulses equal, no cyanosis. Neurovascular intact. Full, normal range of motion. Neuro: Awake and alert, GCS 15, oriented to person, place, time, and situation. Cranial nerves II-XII grossly intact. Motor strength 5/5 in all extremities. Sensory grossly intact. Psych: Awake, alert, with orientation to person, place and time. Behavior, mood, and affect are within normal limits Vital Signs: 04:58 BP 170 / 87; Pulse 74; Resp 18 S; Temp 98.8; Pulse Ox 99% on R/A; Weight 95.25 kg; ha1 Height 6 ft. 0 in. ; 06:26 BP 146 / 79; Pulse 70; Resp 16 S; Pulse Ox 99% on R/A; ay 07:26 BP 134 / 78; Pulse 72; Resp 16; Pulse Ox 99% ; ko1 04:58 Body Mass Index 28.48 (95.25 kg, 182.88 cm) ha1 [place] Coma Score: 04:40 Eye Response: spontaneous(4). Motor Response: obeys commands(6). Verbal Response: ay oriented(5). Total: 15. 19:27 Eye Response: spontaneous(4). Motor Response: obeys commands(6). Verbal Response: sp4 oriented(5). Total: 15. MDM: 05:03 Medical Screening Exam initiated sp4 08:02 ED course: EXAM:Soft Tissue Neck Wo Contr TECHNIQUE: Unenhanced CT axial images of the sp4 neck obtained COMPARISON: None CLINICAL HISTORY: Neck pain and sore throat. Cough FINDINGS: Left tonsil is more prominent than the right. No adjacent abscess seen. Parapharyngeal fat is clear. The remainder of the pharynx, larynx and subglottic trachea appear unremarkable Parotid, submandibular and thyroid glands appear unremarkable No significant lymphadenopathy seen. No fluid within the visualized sinuses/mastoids noted Calcification posterior longitudinal ligament results in marked central spinal stenosis IMPRESSION: Left tonsil is prominent. This could indicate a tonsillitis or mass. Nonemergent MRI neck with contrast may be helpful for further evaluation. . 19:27 Differential diagnosis: Allergic rhinitis, apthous stomatitis, apthous ulcer, sp4 bronchitis, lisa-lake virus, gingivostomatitis. Data reviewed: vital signs, nurses notes, radiologic studies, CT scan. Consideration of Admission/Observation Escalation of care including admission/observation considered. ED course: CT reveals left-sided tonsil enlargement. Patient prescribed cefdinir. Advised follow-up with ear nose and throat physician locally for repeat examination in the office. 05/22 05:02 Order name: CT Soft Tissue Neck W/contr sp4 05/22 05:05 Order name: Soft Tissue Neck Wo Contr EDMS Administered Medications: 05:43 Drug: Promethazine PO 25 mg PO once Route: PO; ay 06:54 Follow up: Response: No adverse reaction bm8 05:44 Drug: Rocephin (cefTRIAXone) IM 1 grams IM once Route: IM; Site: right deltoid; ay 06:54 Follow up: Response: No adverse reaction bm8 05:44 Drug: Acetaminophen-Codeine PO (300 mg-30 mg) 2 tabs PO once; RASS on ADMIN: Combtv4, ay Very Agttd3, Agttd2, Rstlss1, AlertClm0, Drwsy-1, Lt Sdtn-2, Mod Sdtn-3, Dp Sdtn-4, UnArsble-5 Route: PO; 06:54 Follow up: Response: No adverse reaction bm8 05:44 Drug: Ibuprofen PO 800 mg PO once Route: PO; ay 06:54 Follow up: Response: No adverse reaction bm8 Disposition Summary: 05/22/24 08:03 Discharge Ordered Notes: Location: Home sp4 Problem: new sp4 Symptoms: have improved sp4 Condition: Stable sp4 Diagnosis - Acute tonsillitis, unspecified sp4 Followup: sp4 - With: Meghann Reyna MD - When: 7 - 10 days - Reason: Recheck today's complaints Discharge Instructions: - Discharge Summary Sheet sp4 - Tonsillitis, [id number] sp4 Forms: - Patient Portal Instructions sp4 Prescriptions: - cefdinir 300 mg Oral capsule - take 1 capsule ORAL route every 12 hours for 10 days for 10 days; 20 capsule; sp4 Refills: 0, Product Selection Permitted - Ibuprofen 600 mg Oral Tablet - take 1 tablet ORAL route every 6 hours As needed take with food; 30 tablet; sp4 Refills: 0, Product Selection Permitted Signatures: Dispatcher [employer] Anderson Garcia MD MD sp4 Mikey Zaidi, RN Anton Espana RN [id number]
[2024-05-22 08:46] VITALS: TEMP 98.8; O2SAT 99
[2024-05-22 08:48] VITALS: BP 134/78
== END 2024-05-22 08:20 | disposition home or self-care (01) ==
LOC: ER 04:22
DX: J03.90 Acute tonsillitis, unspecified (principal); I10 Essential (primary) hypertension; I48.91 Unspecified atrial fibrillation; Z79.01 Long term (current) use of anticoagulants
CPT/HCPCS: 70490; 96372; 99284; Q0169; J2003; J0696